=== PATIENT | male | born 1945 | race Caucasian/White ===

== ENCOUNTER → 2021-07-06 | Outpatient (CLI) | payer BC ==
[~2021-07-06] MED LIST: ASPI-630 PO; ATORVASTATIN CA80 MG PO; CARV6.2541 PO; METF500T16 PO; QUET25TA5 PO; VALS160T3 PO; [UNRECOGNIZED DRUG - OTHER]; chlorthalidone
== END ==
LOC: LAB 11:24
PROVIDERS: ATTEND Ophthalmology
DX: Z01.812 Encounter for preprocedural laboratory examination (principal); Z20.822 Contact with and (suspected) exposure to COVID-19; H26.9 Unspecified cataract
CPT/HCPCS: U0003

== ENCOUNTER → 2021-07-09 | Day surgery (SDC) | payer BC ==
[~2021-07-09] MED LIST changes: +ACETAMINOPHEN 500 MG TABLET PO PRN; +BALANCED SALT IRRIG SOLN NO.2 500 ML IO ONE; +BENZONATATE 100 MG CAPSULE. PO PRN; +BRIMONIDINE 0.2% OPHTH SOLUTION 5ML BOTTLE. OS ONE; +CEFUROXIME OPHTH 4 MG/0.4 ML SYRINGE. OS ONE; +CHONDROIT-SOD-HYALURONATE KIT. OS ONE; +IBUPROFEN 200 MG TABLET PO PRN; +IPRATRPIUM/ALBUTEROL 0.5/2.5MG 3 ML NEBU. NEB PRN; +IV RINGERS SOLUTION,LACTATED 1,000 ML IV SCH; +LIDO/EPI IN BSS OPHTH 2.7 ML SYRINGE. OS ONE; +MIDAZOLAM HCL PF 2 MG/2 ML VIAL. IV ONE; +MIDAZOLAM HCL PF 2 MG/2 ML VIAL. ONE; +ONDANSETRON PF 4 MG/2 ML VIAL. IV PRN; +PHENYLEPHRINE 10% OPHTH SOLUTION 5ML BOTTLE. OS PRN; +POVIDONE-IODINE 5% OPHTH SOLUTION 30ML BOTTLE. OS ONE; +POVIDONE-IODINE 5% OPHTH SOLUTION 30ML BOTTLE. OS PRN; +PROPARACAINE 0.5% OPHTH SOLUTION 15ML BOTTLE. OS ONE; +PROPARACAINE 0.5% OPHTH SOLUTION 15ML BOTTLE. OS PRN; +prednisoLONE ACETATE 1% OPHTH SUSPENSION 5ML BOTTLE. OS ONE
[2021-07-09] MEDS: TROPICAMIDE 1% OPHTH SOLUTION 15ML BOTTLE. OS SCH ×3 (06:36→06:45)
[2021-07-09] MEDS: KETOROLAC TROMETHAMINE 0.5% OPHTH SOLUTION BOTTLE. OS SCH ×2 (06:36→06:40)
[2021-07-09] MEDS: TOBRAMYCIN 0.3% OPHTH SOLUTION 5ML BOTTLE. OS SCH ×2 (06:36→06:40)
[2021-07-09] MEDS: PHENYLEPHRINE 2.5% OPHTH SOLUTION 2ML BOTTLE. OS SCH ×3 (06:36→06:46)
--- NOTE | 2021-07-09 07:51 | PDOC4 ---
SURGEON: Cherise Lindquist MD Date of Procedure: 07/09/21 PREOP Diagnosis Visually significant cataract: Left Eye OS POSTOP Diagnosis Same PROCEDURE: Phaco w/ posterior chamber IOL: Left Eye OS ANESTHESIA Deep forniceal periocular 2% Lidocaine jelly Jody/retro bulbar block with 2% Lidocaine with 0.5% Marcaine DESCRIPTION OF PROCEDURE The risks, benefits, and alternatives were discussed with the patient who elected to proceed. Informed consent was obtained in writing and placed in the chart After anesthetizing the eye topically, the patient was taken to the operating room, and the operative eye was prepped and draped in the usual sterile fashion for ocular surgery. A wire lid speculum was placed. A 1-mm clear corneal paracentesis incision was created with the side-port blade at a position three o'clock hours clockwise from the temporal cornea. Then, 1% non-preserved Lidocaine with epinephrine was injected into the anterior chamber followed by viscoelastic. Cotton-tipped applicators were used to stabilize the globe, and a 2.4 mm keratome was used to create a self-sealing incision in clear cornea at the temporal limbus. A Malyugin ring was inserted and affixed to the iris given inadequate pupillary dilation. The Utrata forceps were used to create a continuous curvilinear capsulorrhexis. Balanced saline solution was injected via cannula beneath the capsulorrhexis edge to hydrodissect the lens nucleus and cortex from the lens capsule. The phacoemulsification handpiece and a chopping instrument were then used to remove the lens nucleus. The remaining epinuclear material and cortex were removed with the irrigation/aspiration handpiece. Viscoelastic was used to re-inflate the lens capsule, and the intraocular lens was injected directly into the capsular bag. The Malyugin ring was removed. The corneal wound edges were hydrated with balanced salt solution on a cannula and the irrigation/aspiration handpiece was used to extract the remaining viscoelastic. Cefuroxime 0.1mg/ml / Vigamox 0.5% was injected into the anterior chamber intracamerally. The wounds were inspected and found to be watertight at an appropriate intraocular pressure. Topical antibiotic drops were placed on the corneal surface. LRI: No If Yes, Number [] [place] [] Length [] degrees Depth [] microns Incision [place]: 180 Toric Lens [place] [] Patch/shield with Maxitrol/Tobradex/Erythromycin ointment: Yes No Co-managed patients/postop examination stable for co-management with referring doctor. EBL EBL: None SPECIMANS COLLECTED Specimens Collected: None CHERISE LINDQUIST MD Jul 09, 2021 07:51
[2021-07-09 07:59] VITALS: BP 126/96
== END | disposition home or self-care (01) ==
LOC: SURG 06:13
PROVIDERS: ATTEND Ophthalmology
DX: H25.12 Age-related nuclear cataract, left eye (principal); I10 Essential (primary) hypertension; I25.10 Atherosclerotic heart disease of native coronary artery without angina pectoris; J44.9 Chronic obstructive pulmonary disease, unspecified; E78.00 Pure hypercholesterolemia, unspecified; Z98.890 Other specified postprocedural states; Z79.899 Other long term (current) drug therapy; Z88.8 Allergy status to other drugs, medicaments and biological substances; Z79.82 Long term (current) use of aspirin; Z87.891 Personal history of nicotine dependence
CPT/HCPCS: 66982; 82947; J2250; V2632

== ENCOUNTER → 2021-07-20 | Outpatient (CLI) | payer BC ==
[2021-07-09 07:59] VITALS: BP 126/96
[~2021-07-20] MED LIST changes: -ACETAMINOPHEN 500 MG TABLET PO PRN; -BALANCED SALT IRRIG SOLN NO.2 500 ML IO ONE; -BENZONATATE 100 MG CAPSULE. PO PRN; -BRIMONIDINE 0.2% OPHTH SOLUTION 5ML BOTTLE. OS ONE; -CEFUROXIME OPHTH 4 MG/0.4 ML SYRINGE. OS ONE; -CHONDROIT-SOD-HYALURONATE KIT. OS ONE; -IBUPROFEN 200 MG TABLET PO PRN; -IPRATRPIUM/ALBUTEROL 0.5/2.5MG 3 ML NEBU. NEB PRN; -IV RINGERS SOLUTION,LACTATED 1,000 ML IV SCH; -LIDO/EPI IN BSS OPHTH 2.7 ML SYRINGE. OS ONE; -MIDAZOLAM HCL PF 2 MG/2 ML VIAL. IV ONE; -MIDAZOLAM HCL PF 2 MG/2 ML VIAL. ONE; -ONDANSETRON PF 4 MG/2 ML VIAL. IV PRN; -PHENYLEPHRINE 10% OPHTH SOLUTION 5ML BOTTLE. OS PRN; -POVIDONE-IODINE 5% OPHTH SOLUTION 30ML BOTTLE. OS ONE; -POVIDONE-IODINE 5% OPHTH SOLUTION 30ML BOTTLE. OS PRN; -PROPARACAINE 0.5% OPHTH SOLUTION 15ML BOTTLE. OS ONE; -PROPARACAINE 0.5% OPHTH SOLUTION 15ML BOTTLE. OS PRN; -prednisoLONE ACETATE 1% OPHTH SUSPENSION 5ML BOTTLE. OS ONE
== END ==
LOC: LAB 08:42
PROVIDERS: ATTEND Ophthalmology
DX: Z01.812 Encounter for preprocedural laboratory examination (principal); Z20.822 Contact with and (suspected) exposure to COVID-19; Z98.41 Cataract extraction status, right eye
CPT/HCPCS: U0003

== ENCOUNTER → 2021-07-23 | Day surgery (SDC) | payer BC ==
[~2021-07-23] MED LIST changes: +ACETAMINOPHEN 500 MG TABLET PO PRN; +BALANCED SALT IRRIG SOLN NO.2 500 ML IO ONE; +BENZONATATE 100 MG CAPSULE. PO PRN; +BRIMONIDINE 0.2% OPHTH SOLUTION 5ML BOTTLE. OD ONE; +CEFUROXIME OPHTH 4 MG/0.4 ML SYRINGE. OD ONE; +CHONDROIT-SOD-HYALURONATE KIT. OD ONE; +IBUPROFEN 200 MG TABLET PO PRN; +IPRATRPIUM/ALBUTEROL 0.5/2.5MG 3 ML NEBU. NEB PRN; +IV RINGERS SOLUTION,LACTATED 1,000 ML IV SCH; +LIDO/EPI IN BSS OPHTH 2.7 ML SYRINGE. OD ONE; +LIDOCAINE 2% JELLY 6ML IN APPLICATOR. ONE; +MIDAZOLAM HCL PF 2 MG/2 ML VIAL. IV ONE; +MIDAZOLAM HCL PF 2 MG/2 ML VIAL. ONE; +ONDANSETRON PF 4 MG/2 ML VIAL. IV PRN; +PHENYLEPHRINE 10% OPHTH SOLUTION 5ML BOTTLE. OD PRN; +POVIDONE-IODINE 5% OPHTH SOLUTION 30ML BOTTLE. OD ONE; +POVIDONE-IODINE 5% OPHTH SOLUTION 30ML BOTTLE. OD PRN; +POVIDONE-IODINE 5% OPHTH SOLUTION 30ML BOTTLE. ONE; +PROPARACAINE 0.5% OPHTH SOLUTION 15ML BOTTLE. OD ONE; +PROPARACAINE 0.5% OPHTH SOLUTION 15ML BOTTLE. OD PRN; +prednisoLONE ACETATE 1% OPHTH SUSPENSION 5ML BOTTLE. OD ONE
[2021-07-23] MEDS: TOBRAMYCIN 0.3% OPHTH SOLUTION 5ML BOTTLE. OD SCH ×2 (06:42→06:52)
[2021-07-23] MEDS: KETOROLAC TROMETHAMINE 0.5% OPHTH SOLUTION BOTTLE. OD SCH ×2 (06:42→06:52)
[2021-07-23] MEDS: PHENYLEPHRINE 2.5% OPHTH SOLUTION 2ML BOTTLE. OD SCH ×3 (06:43→06:55)
[2021-07-23] MEDS: TROPICAMIDE 1% OPHTH SOLUTION 15ML BOTTLE. OD SCH ×3 (06:43→06:55)
--- NOTE | 2021-07-23 08:01 | PDOC4 ---
SURGEON: Cherise Lindquist MD Date of Procedure: 07/23/21 PREOP Diagnosis Visually significant cataract: Right Eye OD POSTOP Diagnosis Same PROCEDURE: Phaco w/ posterior chamber IOL: Right Eye OD ANESTHESIA Deep forniceal periocular 2% Lidocaine jelly Jody/retro bulbar block with 2% Lidocaine with 0.5% Marcaine DESCRIPTION OF PROCEDURE The risks, benefits, and alternatives were discussed with the patient who elected to proceed. Informed consent was obtained in writing and placed in the chart After anesthetizing the eye topically, the patient was taken to the operating room, and the operative eye was prepped and draped in the usual sterile fashion for ocular surgery. A wire lid speculum was placed. A 1-mm clear corneal paracentesis incision was created with the side-port blade at a position three o'clock hours clockwise from the temporal cornea. Then, 1% non-preserved Lidocaine with epinephrine was injected into the anterior chamber followed by viscoelastic. Cotton-tipped applicators were used to stabilize the globe, and a 2.4 mm keratome was used to create a self-sealing incision in clear cornea at the temporal limbus. A Malyugin ring was inserted and affixed to the pupil given inadequate pupillary dilation. The Utrata forceps were used to create a continuous curvilinear capsulorrhexis. Balanced saline solution was injected via cannula beneath the capsulorrhexis edge to hydrodissect the lens nucleus and cortex from the lens capsule. The phacoemulsification handpiece and a chopping instrument were then used to remove the lens nucleus. The remaining epinuclear material and cortex were removed with the irrigation/aspiration handpiece. Viscoelastic was used to re-inflate the lens capsule, and the intraocular lens was injected directly into the capsular bag. The Malyugin ring was removed. The corneal wound edges were hydrated with balanced salt solution on a cannula and the irrigation/aspiration handpiece was used to extract the remaining viscoelastic. Cefuroxime 0.1mg/ml / Vigamox 0.5% was injected into the anterior chamber intracamerally. The wou nds were inspected and found to be watertight at an appropriate intraocular pressure. Topical antibiotic drops were placed on the corneal surface. LRI: No If Yes, Number [] [place] [] Length [] degrees Depth [] microns Incision [place]: 180 Toric Lens [place] [] Patch/shield with Maxitrol/Tobradex/Erythromycin ointment: Yes No Co-managed patients/postop examination stable for co-management with referring doctor. EBL EBL: None SPECIMANS COLLECTED Specimens Collected: None CHERISE LINDQUIST MD Jul 23, 2021 08:01
[2021-07-23 08:15] VITALS: BP 110/60
== END | disposition home or self-care (01) ==
LOC: SURG 06:24
PROVIDERS: ATTEND Ophthalmology
DX: H25.11 Age-related nuclear cataract, right eye (principal); I10 Essential (primary) hypertension; E78.00 Pure hypercholesterolemia, unspecified; E11.9 Type 2 diabetes mellitus without complications; J44.9 Chronic obstructive pulmonary disease, unspecified; Z98.890 Other specified postprocedural states; Z79.899 Other long term (current) drug therapy; Z87.891 Personal history of nicotine dependence; Z88.8 Allergy status to other drugs, medicaments and biological substances
CPT/HCPCS: 66982; 82947; J2250; V2632